=== PATIENT | male | born 2000 | race Caucasian/White ===

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

== ENCOUNTER 2018-08-04 21:29 | Emergency (ER) | payer BC ==
[2018-08-04 21:36] VITALS: BP 165/86
--- NOTE | 2018-08-04 22:07 | EDM.PDOC ---
ED HPI GENERAL MEDICAL PROBLEM - General Chief Complaint: General Stated Complaint: COLD Time Seen by Provider: 08/04/18 21:56 Source of Information: Reports: Patient History Limitations: Reports: No Limitations - History of Present Illness INITIAL COMMENTS - FREE TEXT/NARRATIVE: 18 YO WM presents to ER complaining of cough/congestion and mild shortness of breath which began 8 days ago. Pt came to ER tonight due to length of illness which was concerning him. 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 Pt denies chest pain, fever/chills, nausea/vomiting. Pt reports nasal congestion with some mild epistaxis. Onset Date: 07/27/18 Duration: Day(s): (8) Location: Reports: Generalized Severity: Mild Improves with: Reports: Cold Therapy Worsens with: Reports: None Associated Symptoms: Reports: Cough, cough w sputum, Shortness of Breath. Denies: Chest Pain, Fever/Chills, Nausea/Vomiting Treatments POOL CLEANER: Reports: Cold Therapy - Related Data Allergies Allergy/AdvReac Type Severity Reaction Status Date / Time Penicillins Allergy Hives Verified 08/04/18 21:40 Home Meds: Home Meds Albuterol [Ventolin HFA] 2 puff INH Q4H PRN #1 puff 08/04/18 [Rx] Azithromycin [Zithromax] 250 mg PO DAILY #6 tab 08/04/18 [Rx] Cetirizine [ZyrTEC] 10 mg PO DAILY #30 tab 08/04/18 [Rx] Past Medical History HEENT History: Reports: Impaired Vision, Other (See Below) Other HEENT History: glasses Respiratory History: Reports: Asthma Other Respiratory History: smoker. asthma as child Neurological History: Reports: Concussion - Infectious Disease History Infectious Disease History: Reports: Chicken Pox - Past Surgical History HEENT Surgical History: Reports: Tonsillectomy Social & Family History - Tobacco Use Smoking Status *Q: Current Every Day Smoker Years of Tobacco use: 2 Packs/Tins Daily: 1 - Caffeine Use Caffeine Use: Reports: Soda Other Caffeine Use: kristen yellow -3 per day - Recreational Drug Use Recreational Drug Use: No ED ROS GENERAL - Review of Systems Review Of Systems: See Below Constitutional: Reports: No Symptoms HEENT: Reports: Rhinitis, Throat Pain Respiratory: Reports: Wheezing Cardiovascular: Reports: No Symptoms Endocrine: Reports: No Symptoms GI/Abdominal: Reports: No Symptoms : Reports: No Symptoms Musculoskeletal: Reports: No Symptoms Skin: Reports: No Symptoms Neurological: Reports: No Symptoms Psychiatric: Reports: No Symptoms Hematologic/Lymphatic: Reports: No Symptoms Immunologic: Reports: No Symptoms ED EXAM, GENERAL - Physical Exam Exam: See Below Exam Limited By: No Limitations General Appearance: Alert, WD/WN, No Apparent Distress Ears: Normal External Exam, Normal Canal, Hearing Grossly Normal, Normal TMs Ear Exam: Bilateral Ear: Auricle Normal, Canal Normal, TM normal Nose: Nasal Drainage Throat/Mouth: Normal Inspection, Normal Lips, Normal Teeth, Normal Gums, Normal Oropharynx, Normal Voice, No Airway Compromise Head: Atraumatic, Normocephalic Neck: Normal Inspection, Supple, Non-Tender, Full Range of Motion Respiratory/Chest: No Respiratory Distress, No Accessory Muscle Use, Chest Non- Tender, Wheezing (scattered wheezes in upper lobes) Cardiovascular: Normal Peripheral Pulses, Regular Rate, Rhythm, No Edema, No Gallop, No JVD, No Murmur, No Rub GI/Abdominal: Normal Bowel Sounds, Soft, Non-Tender, No Organomegaly, No Distention, No Abnormal Bruit, No Mass Back Exam: Normal Inspection, Full Range of Motion, NT Extremities: Normal Inspection, Normal Range of Motion, Non-Tender, Normal Capillary Refill, No Pedal Edema Neurological: Alert, Oriented, CN II-XII Intact, Normal Cognition, Normal Gait, Normal Reflexes, No Motor/Sensory Deficits Psychiatric: Normal Affect, Normal Mood Skin Exam: Warm, Dry, Intact, Normal Color, No Rash Lymphatic: No Adenopathy Course - Vital Signs Last Recorded V/S: Last Vital Signs Temp 37.7 C 08/04/18 21:32 Pulse 86 08/04/18 21:32 Resp 22 H 08/04/18 21:32 BP 165/86 H 08/04/18 21:32 Pulse Ox 95 08/04/18 21:32 Departure - Departure Time of Disposition: 22:23 Disposition: Home, Self-Care 01 Condition: Good Clinical Impression: Acute bronchitis Qualifiers: Bronchitis organism: unspecified organism Qualified Code(s): J20.9 - Acute bronchitis, unspecified - Discharge Information Prescriptions: Albuterol [Ventolin HFA] 2 puff INH Q4H PRN #1 puff PRN Reason: Shortness Of Breath Azithromycin [Zithromax] 250 mg PO DAILY #6 tab Cetirizine [ZyrTEC] 10 mg PO DAILY #30 tab Instructions: Acute Bronchitis, Adult, [id number] Referrals: Lupe Mckeon MD [Primary Care Provider] - Additional Instructions: 1. discharge home 2. z-king 3. zyrtec 10mg PO Qam/Benadryl 50mg PO QHS PRN 4. albuterol HFA 2 puffs Q4 and PRN 5. return to ER for worsening symptoms 6. follow up with PCP in 48 hours for recheck - Assessment/Plan Assessment:: 1. acute bronchitis Plan: 1. discharge home 2. z-king 3. zyrtec 10mg PO Qam/Benadryl 50mg PO QHS PRN 4. albuterol HFA 2 puffs Q4 and PRN 5. return to ER for worsening symptoms 6. follow up with PCP in 48 hours for recheck
== END 2018-08-04 22:32 | disposition home or self-care (01) ==
LOC: KA.ED 21:29
DX: J20.9 Acute bronchitis, unspecified (principal); F17.210 Nicotine dependence, cigarettes, uncomplicated; J45.909 Unspecified asthma, uncomplicated; Z88.0 Allergy status to penicillin; Z79.899 Other long term (current) drug therapy
CPT/HCPCS: 99282

== ENCOUNTER 2018-12-20 21:04 | Emergency (ER) | payer BC ==
[2018-12-20 21:17] VITALS: BP 142/59; PULSE 86
[2018-12-20] MEDS ORDERED: Clindamycin HCl 150 MG Cap PO ONE (21:56)
[2018-12-20 21:59] LABS: ANION GAP 13.5 mmol/L (5-15); CHLORIDE,CL 105 mmol/L (98-115); SODIUM,NA 144 mmol/L (136-145)
--- NOTE | 2018-12-20 21:59 | EDM.PDOC ---
ED HPI GENERAL MEDICAL PROBLEM - General Chief Complaint: General Stated Complaint: lump in Right arm pit Time Seen by Provider: 12/20/18 21:19 Source of Information: Reports: Patient History Limitations: Reports: No Limitations - History of Present Illness INITIAL COMMENTS - FREE TEXT/NARRATIVE: Patient presents with a red, tender lump in right axilla. He says the lump has been present for a week or more and he sometimes messes with it out of boredom. Last night he attempted to open it with a finger nail clipper. Now today it is red and more tender. Right Axillary Pain Score (Numeric/FACES): 1 - Related Data Allergies Allergy/AdvReac Type Severity Reaction Status Date / Time Penicillins Allergy Hives Verified 08/04/18 21:40 Home Meds: Home Meds Albuterol [Ventolin HFA] 2 puff INH Q4H PRN #1 puff 08/04/18 [Rx] Azithromycin [Zithromax] 250 mg PO DAILY #6 tab 08/04/18 [Rx] Cetirizine [ZyrTEC] 10 mg PO DAILY #30 tab 08/04/18 [Rx] Past Medical History HEENT History: Reports: Impaired Vision, Other (See Below) Other HEENT History: glasses Respiratory History: Reports: Asthma Other Respiratory History: smoker. asthma as child Neurological History: Reports: Concussion - Infectious Disease History Infectious Disease History: Reports: Chicken Pox - Past Surgical History HEENT Surgical History: Reports: Tonsillectomy Social & Family History - Caffeine Use Caffeine Use: Reports: Soda Other Caffeine Use: kristen yellow -3 per day ED ROS GENERAL - Review of Systems Review Of Systems: See Below Constitutional: Denies: Fever, Chills, Malaise, Weakness HEENT: Denies: Ear Pain, Throat Pain, Vision Change Respiratory: Denies: Shortness of Breath (not normally but he says he sometimes has brief episodes once or twice at night. He doesn't know if he snores heavily or if he gasps at all during sleep. We discussed the possibility of sleep apnea and he will as his roommate if he has noticed any of these signs at all. He will follow up with PCP if any problems.), Cough Cardiovascular: Denies: Chest Pain, Lightheadedness, Syncope Endocrine: Reports: No Symptoms GI/Abdominal: Denies: Abdominal Pain, Diarrhea, Vomiting : Denies: Dysuria, Flank Pain Musculoskeletal: Denies: Neck Pain, Shoulder Pain, Arm Pain, Back Pain, Hand Pain Skin: Reports: Erythema, Lumps. Denies: Cyanosis, Jaundice, Mottled, Pallor, Diaphoresis Neurological: Denies: Confusion, Dizziness, Seizure, Syncope, Trouble Speaking, Difficulty Walking Psychiatric: Denies: Agitation, Anxiety ED EXAM, GENERAL - Physical Exam Exam: See Below Exam Limited By: No Limitations General Appearance: Alert, WD/WN, No Apparent Distress Eye Exam: Bilateral Eye: EOMI, Normal Inspection, PERRL Ears: Normal External Exam, Hearing Grossly Normal Nose: Normal Inspection, No Blood Throat/Mouth: Normal Inspection, Normal Lips, Normal Voice, No Airway Compromise Head: Atraumatic, Normocephalic Neck: Normal Inspection, Full Range of Motion, Other (He has a fairly short, thick neck which would support the possibility of JAJA) Respiratory/Chest: No Respiratory Distress, Lungs Clear, Normal Breath Sounds, No Accessory Muscle Use Cardiovascular: Regular Rate, Rhythm, No Murmur GI/Abdominal: Normal Bowel Sounds, Soft, Non-Tender, No Organomegaly, No Distention Back Exam: Normal Inspection, Full Range of Motion Extremities: Normal Inspection, Normal Range of Motion Neurological: Alert, Oriented, Normal Cognition, No Motor/Sensory Deficits Psychiatric: Normal Affect, Normal Mood Skin Exam: Warm, Dry, Intact, Normal Color, No Rash, Other (In the right anterior axilla there is a palpable lump approx. 2 cm in size with superficial erythema and minimal induration and mildly tender.) Course - Vital Signs Last Recorded V/S: Last Vital Signs Temp 98.8 F 12/20/18 21:07 Pulse 86 12/20/18 21:07 Resp 16 12/20/18 21:07 BP 142/59 H 12/20/18 21:07 Pulse Ox 96 12/20/18 21:07 - Orders/Labs/Meds Labs: Laboratory Tests 12/20/18 12/20/18 Range/Units 21:33 21:33 WBC 10.57 H (5.00-10.00) 10^3/uL RBC 5.61 (4.50-6.00) 10^6/uL Hgb 16.3 (13.0-17.0) g/dL Hct 46.1 (40.0-52.0) % MCV 82.2 (82.0-92.0) fL MCH 29.1 (27.0-31.0) pg MCHC 35.4 (32.0-36.0) g/dL RDW 12.5 (11.5-14.5) % Plt Count 198 (150-400) 10^3/uL MPV 10.2 (7.4-10.4) fL Immature Gran % (Auto) 0.2 (0.0-5.0) % Neut % (Auto) 59.9 (50.0-70.0) % Lymph % (Auto) 27.4 (20.0-40.0) % [place]atte % (Auto) 9.2 H (2.0-8.0) % Eos % (Auto) 3.0 (1.0-3.0) % Baso % (Auto) 0.3 (0.0-1.0) % Immature Gran # (Auto) 0.02 (0.00-0.50) 10^3/uL Neut # (Auto) 6.33 (2.50-7.00) 10^3/uL Lymph # (Auto) 2.90 (1.00-4.00) 10^3/uL [place] # (Auto) 0.97 H (0.10-0.80) 10^3/uL Eos # (Auto) 0.32 H (0.10-0.30) 10^3/uL Baso # (Auto) 0.03 (0.00-0.10) 10^3/uL Sodium 144 (136-145) mmol/L Potassium 4.1 (3.3-5.3) mmol/L Chloride 105 (98-115) mmol/L Carbon Dioxide 29.6 (21.0-32.0) mmol/L Anion Gap 13.5 (5-15) mmol/L BUN 14 (6-25) mg/dL Creatinine 0.89 (0.51-1.17) mg/dL Est Cr Clr Drug Dosing 149.63 mL/min Estimated GFR (MDRD) > 60 mL/min Glucose 124 H (75 - 99) mg/dL Calcium 9.2 (8.7-10.3) mg/dL Total Bilirubin 0.3 (0.2-1.0) mg/dL AST 26 (15-37) U/L ALT 64 (12-78) U/L Alkaline Phosphatase 65 (46-116) IU/L Total Protein 7.2 (6.4-8.2) g/dL Albumin 3.84 (3.00-4.80) g/dL Meds: Medications Discontinued Medications Generic Name Dose Route Start Last Admin Trade Name Orlin PRN Reason Stop Dose Admin Clindamycin HCl 1,200 mg 12/20/18 21:56 Cleocin PO 12/20/18 21:57 ONETIME ONE - Re-Assessments/Exams Free Text/Narrative Re-Assessment/Exam: 12/20/18 22:06 WBC is 10.5; discussed findings and treatment plan with patient. Since he had swelling in the face and throat from penicillin I will avoid Keflex at this time , so he will take Clindamycin and follow up with his PCP in a week for recheck. I would expect either the redness and swelling to be gone or ripened to a drainable abscess by that time. Patient discharged to home in stable condition. Departure - Departure Time of Disposition: 21:59 Disposition: Home, Self-Care 01 Condition: Good Clinical Impression: Sebaceous cyst of right axilla, Cellulitis of axilla, right - Discharge Information Instructions: Cellulitis, Adult, [place] Forms: ED Department Discharge Additional Instructions: 1. Drink 8 cups of water daily. 2. Take the antibiotic as directed. 3. Follow up with your PCP in about a week for recheck. 4. Recheck sooner if worsening.
== END 2018-12-20 22:10 | disposition home or self-care (01) ==
LOC: KA.ED 21:04
DX: L72.3 Sebaceous cyst (principal); L03.111 Cellulitis of right axilla; Z88.1 Allergy status to other antibiotic agents; J45.909 Unspecified asthma, uncomplicated
CPT/HCPCS: 36415; 80053; 85025; 99283; A9270-GY

== ENCOUNTER 2018-12-22 13:25 | Emergency (ER) | payer BC ==
[2018-12-22 13:37] VITALS: BP 145/79; PULSE 90
[2018-12-22] MEDS ORDERED: Lidocaine 1% 20 ML MDV ONE (14:09)
[2018-12-22] MEDS ORDERED: Lidocaine 1% 20 ML MDV INJECT ONE (14:17)
--- NOTE | 2018-12-22 14:41 | EDM.PDOC ---
ED HPI GENERAL MEDICAL PROBLEM - General Chief Complaint: Upper Extremity Injury/Pain Time Seen by Provider: 12/22/18 14:05 Source of Information: Reports: Patient History Limitations: Reports: No Limitations - History of Present Illness INITIAL COMMENTS - FREE TEXT/NARRATIVE: Patient presents with draining abscess at his right axilla. He was here two days ago and started on Clindamycin for this which hadn't drained at all yet at that time. He says he called the clinic but couldn't get in for two hours so came back to ER. He has been taking the Clindamycin bid as directed and has 4 doses in now. No fever or other changes in last two days. Right Axillary Pain Score (Numeric/FACES): 5 - Related Data Allergies Allergy/AdvReac Type Severity Reaction Status Date / Time Penicillins Allergy Hives Verified 12/22/18 13:36 Home Meds: Home Meds Albuterol [Ventolin HFA] 2 puff INH Q4H PRN #1 puff 08/04/18 [Rx] Azithromycin [Zithromax] 250 mg PO DAILY #6 tab 08/04/18 [Rx] Past Medical History HEENT History: Reports: Impaired Vision, Other (See Below) Other HEENT History: glasses Respiratory History: Reports: Asthma Other Respiratory History: smoker. asthma as child Neurological History: Reports: Concussion - Infectious Disease History Infectious Disease History: Reports: Chicken Pox - Past Surgical History Head Surgeries/Procedures: Reports: None HEENT Surgical History: Reports: Tonsillectomy Respiratory Surgical History: Reports: None Neurological Surgical History: Reports: None Social & Family History - Family History Family Medical History: Noncontributory - Tobacco Use Smoking Status *Q: Current Every Day Smoker Years of Tobacco use: 2 Packs/Tins Daily: 0.5 - Caffeine Use Caffeine Use: Reports: Soda Other Caffeine Use: kristen yellow -3 per day - Recreational Drug Use Recreational Drug Use: No Review of Systems - Review of Systems Review Of Systems: ROS reveals no pertinent complaints other than HPI. ED EXAM, GENERAL - Physical Exam Exam: See Below Exam Limited By: No Limitations General Appearance: Alert, WD/WN, No Apparent Distress Eye Exam: Bilateral Eye: EOMI, Normal Inspection, PERRL Ears: Normal External Exam, Hearing Grossly Normal Nose: Normal Inspection, No Blood Throat/Mouth: Normal Inspection, Normal Lips, Normal Voice, No Airway Compromise Head: Atraumatic, Normocephalic Neck: Normal Inspection, Full Range of Motion Respiratory/Chest: No Respiratory Distress, Lungs Clear, Normal Breath Sounds Cardiovascular: Regular Rate, Rhythm, No Murmur Extremities: Normal Range of Motion, Other (At anterior right axilla there is moderate bloody/serous drainage from a moderately swollen and erythematous lesion. No surrounding erythema but there is palpable induration about 1.5 x 2 inches in size. ) Neurological: Alert, Oriented, Normal Cognition, No Motor/Sensory Deficits Psychiatric: Normal Affect, Normal Mood Skin Exam: Warm, Dry, Intact, Normal Color, No Rash ED TRAUMA EXTREMITY PROCEDURES - I&D Site: right axilla Skin Prep: Providone-Iodine (Betadine) Local Anesthesia: Lidocaine: 1% Plain Local Anesthetic Volume: 2cc Area Incised With: 11 Blade Drainage: Bloody, Small Amount Probed to Break Up Loculations: Yes Sterile Dressinx4(s) Complications: No Course - Vital Signs Last Recorded V/S: Last Vital Signs Temp 98.9 F 12/22/18 13:32 Pulse 90 12/22/18 13:32 Resp 16 12/22/18 13:32 BP 145/79 H 12/22/18 13:32 Pulse Ox 95 12/22/18 13:32 - Orders/Labs/Meds Orders: Active Orders 24 hr Category Date Time Status CULTURE WOUND + SMEAR [RM] Stat Lab 12/22/18 14:21 Ordered Meds: Medications Discontinued Medications Generic Name Dose Route Start Last Admin Trade Name Orlin PRN Reason Stop Dose Admin Lidocaine HCl Confirm 12/22/18 14:09 Xylocaine 1% Administered 12/22/18 14:10 Dose 20 ml .ROUTE .STK-MED ONE Lidocaine HCl 3 ml 12/22/18 14:17 Xylocaine 1% INJECT 12/22/18 14:18 ONETIME ONE - Re-Assessments/Exams Free Text/Narrative Re-Assessment/Exam: 12/22/18 14:35 I discussed the procedure with patient prior to proceeding and he agreed. Sterile technique was used to anesthetize and open the site. Culture swabs were taken of what appeared to be mostly bloody discharge. No significant purulence was found. The wound was kept open by leaving a corner of the sterile 4x4 inside and 3-4 additional 4x4s were placed over the site to absorb future drainage. This was held in place on 3 sides by metapore tape; open to the axilla side. Patient tolerated the procedure well. The indurated area is slightly larger than it was two days ago. I feel it is too early to know if Clindamycin will be adequate for this but follow up with culture results in 2-3 days will be better indicator. Since patient had swelling of face and throat from penicillin, hopefully Clindamycin will be efficacious. Discussed findings and treatment plan with patient and he was discharged to home in stable condition. Departure - Departure Time of Disposition: 14:31 Disposition: Home, Self-Care 01 Condition: Good Clinical Impression: Infected cyst of right shoulder - Discharge Information Referrals: Lidia Luis PA-C [Primary Care Provider] - Additional Instructions: 1. Drink 8 cups of water daily. 2. Continue the antibiotics as directed. 3. Change the bandages as often as needed to control drainage, but at least daily. 4. Follow up in 2-3 days with your PCP for recheck and culture results. Call today to make that appointment. - My Orders Last 24 Hours: My Active Orders 12/22/18 14:21 CULTURE WOUND + SMEAR [RM] Stat - Assessment/Plan Last 24 Hours: My Active Orders 12/22/18 14:21 CULTURE WOUND + SMEAR [RM] Stat
== END 2018-12-22 14:40 | disposition home or self-care (01) ==
LOC: KA.ED 13:25
DX: L02.411 Cutaneous abscess of right axilla (principal); J45.909 Unspecified asthma, uncomplicated; F17.210 Nicotine dependence, cigarettes, uncomplicated; Z88.0 Allergy status to penicillin
CPT/HCPCS: 10060; 87070; 87205; 99283-25; J2001

== ENCOUNTER 2020-01-13 23:17 | Emergency (ER) | payer BC ==
[2020-01-13 23:28] VITALS: BP 166/94; PULSE 97
[2020-01-13] MEDS: Ketorolac 60 MG/2 ML SDV IM ONE (23:35)
[2020-01-13] MEDS: Ketorolac 60 MG/2 ML SDV ONE (23:41)
--- NOTE | 2020-01-13 23:43 | EDM.PDOC ---
ED HPI GENERAL MEDICAL PROBLEM - General Chief Complaint: ENT Problem Stated Complaint: headache, tooth ache Time Seen by Provider: 01/13/20 23:43 Source of Information: Reports: Patient History Limitations: Reports: No Limitations - History of Present Illness INITIAL COMMENTS - FREE TEXT/NARRATIVE: Horacio, 19-year-old male, dental pain #32 occurring last week. He had seen his dentist and was told to think about either extraction or crown with root canal. Stated he got tied up at work and busy and tonight is regretting that decision as pain has returned more significant causing ear pain as well as headache. Has established with dentist in [facility] and will be contacting them Saturday for the extraction appointment. Denies any other contributing factors. Onset Date: 01/11/20 Duration: Day(s):, Getting Worse Location: Reports: Face Quality: Reports: Ache, Pressure Severity: Moderate head/tooth Pain Score (Numeric/FACES): 7 - Related Data Allergies Allergy/AdvReac Type Severity Reaction Status Date / Time Penicillins Allergy Hives Verified 01/13/20 23:18 Home Meds: Home Meds clindamycin HCL [Cleocin] 450 mg PO Q6H #18 cap 01/13/20 [Rx] Past Medical History HEENT History: Reports: Impaired Vision, Other (See Below) Other HEENT History: glasses, dental caries Cardiovascular History: Reports: None Respiratory History: Reports: Asthma Other Respiratory History: smoker. asthma as child Neurological History: Reports: Concussion - Infectious Disease History Infectious Disease History: Reports: Chicken Pox - Past Surgical History Head Surgeries/Procedures: Reports: None HEENT Surgical History: Reports: Tonsillectomy Respiratory Surgical History: Reports: None Neurological Surgical History: Reports: None Social & Family History - Family History Family Medical History: No Pertinent Family History - Tobacco Use Tobacco Use Status *Q: Current Every Day Tobacco User Tobacco Use Within Last Twelve Months: Cigarettes Years of Tobacco use: 6 Packs/Tins Daily: 0.5 Used Tobacco, but Quit: No - Caffeine Use Caffeine Use: Reports: Soda Other Caffeine Use: kristen yellow -3 per day - Recreational Drug Use Recreational Drug Use: No ED ROS GENERAL - Review of Systems Review Of Systems: Comprehensive ROS is negative, except as noted in HPI. ED EXAM, GENERAL - Physical Exam Exam: See Below Free Text/Narrative:: Alert, oriented, in mild painful distress. HEENT shows inflamed bulging right tympanic membrane with faint flushing of the left membrane. Nasal passages are clear. Oral pharynx is free of erythema or discharge. #32 shows significant caries with erythema and redness surrounding the tooth. There is no involvement of the cheek or buccal area. No inflammation of the tongue. He is able to swallow his secretions with no problem. Neck is soft supple with no lymphadenopathy. States the right side of his face aches but there is no notable swelling/inflammation to the tissue. Thorax is clear with no wheezes nor crackles. Cardiac regular S1-S2 no murmur. Denies any nausea no abdominal pain. Course - Vital Signs Last Recorded V/S: Last Vital Signs Temp 36.7 C 01/13/20 23:21 Pulse 97 01/13/20 23:21 Resp 16 01/13/20 23:21 BP 166/94 H 01/13/20 23:21 Pulse Ox 96 01/13/20 23:21 - Orders/Labs/Meds Orders: Active Orders 24 hr Category Date Time Status clindamycin HCL [Cleocin] Med 01/13/20 23:45 Ordered 2,250 mg PO Q8H Medication Orders Clindamycin HCl (Cleocin) 2,250 mg PO Q8H ELENA Meds: Medications Generic Name Dose Route Start Last Admin Trade Name Freq PRN Reason Stop Dose Admin Clindamycin HCl 2,250 mg 01/13/20 23:45 Cleocin PO Q8H ELENA Discontinued Medications Generic Name Dose Route Start Last Admin Trade Name Freq PRN Reason Stop Dose Admin Ketorolac Tromethamine Confirm 01/13/20 23:32 01/13/20 23:41 Toradol Administered 01/13/20 23:33 Not Given Dose 60 mg .ROUTE .STK-MED ONE Ketorolac Tromethamine 60 mg 01/13/20 23:38 01/13/20 23:35 Toradol IM 01/13/20 23:39 60 mg ONETIME ONE Administration - Re-Assessments/Exams Free Text/Narrative Re-Assessment/Exam: 01/14/20 00:11 Headache significantly improved as well as some improvement of the dental pain with the injection of ketorolac. Departure - Departure Time of Disposition: 00:11 Disposition: Home, Self-Care 01 Condition: Good Clinical Impression: Pain, dental, Ear pain, right, Dental caries extending into dentin - Discharge Information *PRESCRIPTION DRUG MONITORING PROGRAM REVIEWED*: Not Applicable *COPY OF PRESCRIPTION DRUG MONITORING REPORT IN PATIENT DAVID: Not Applicable Prescriptions: clindamycin HCL [Cleocin] 450 mg PO Q6H #18 cap Forms: ED Department Discharge Additional Instructions: You may take ibuprofen, 800 mg every 8 hours with food to help with discomfort. Tylenol 1000 mg every 8 hours to assist with pain Clindamycin 450 mg every 8 hours with enough issued here in the emergency department to last you until the pharmacy opens on Saturday. You will then sweet pickle maker prescription Saturday to continue for the remainder of the weeks treatment. Make sure you drink as much fluid as possible, preferably water. Contact your dentist Saturday morning to make arrangements for the extraction or treatment to which ever you have decided. Call or return if worsening over the weekend. Sepsis Event Note (ED) - Evaluation Sepsis Screening Result: No Definite Risk - Focused Exam Vital Signs: Vital Signs Temp Pulse Resp BP Pulse Ox 01/13/20 23:21 36.7 C 97 16 166/94 H 96 - Problem List & Annotations (1) Pain, dental SNOMED Code(s): 96586185 Code(s): K08.89 - OTHER SPECIFIED DISORDERS OF TEETH AND SUPPORTING STRUCTURES Status: Acute Priority: High (2) Headache SNOMED Code(s): 33524767 Code(s): R51.9 - HEADACHE, UNSPECIFIED Status: Acute Priority: High Qualifiers: Headache type: unspecified Headache chronicity pattern: acute headache Intractability: not intractable Qualified Code(s): R51.9 - Headache, unspecified (3) Ear pain, right SNOMED Code(s): 03578075, 117984490 Code(s): H92.01 - OTALGIA, RIGHT EAR Status: Acute Priority: High - Problem List Review Problem List Initiated/Reviewed/Updated: Yes - My Orders Last 24 Hours: My Active Orders 01/13/20 23:45 clindamycin HCL [Cleocin] 2,250 mg PO Q8H - Assessment/Plan Last 24 Hours: My Active Orders 01/13/20 23:45 clindamycin HCL [Cleocin] 2,250 mg PO Q8H Plan: You may take ibuprofen, 800 mg every 8 hours with food to help with discomfort. Tylenol 1000 mg every 8 hours to assist with pain Clindamycin 450 mg every 8 hours with enough issued here in the emergency department to last you until the pharmacy opens on Saturday. You will then sweet pickle maker prescription Saturday to continue for the remainder of the weeks treatment. Make sure you drink as much fluid as possible, preferably water. Contact your dentist Saturday morning to make arrangements for the extraction or treatment to which ever you have decided. Call or return if worsening over the weekend.
[2020-01-13] MEDS ORDERED: Clindamycin HCl 150 MG Cap PO SCH (23:45)
[2020-01-14] MEDS: Clindamycin HCl 150 MG Cap PO ONE (00:10)
== END 2020-01-14 00:10 | disposition home or self-care (01) ==
LOC: KA.ED 23:17
DX: K02.9 Dental caries, unspecified (principal); J45.909 Unspecified asthma, uncomplicated; H92.01 Otalgia, right ear; F17.210 Nicotine dependence, cigarettes, uncomplicated; Z88.0 Allergy status to penicillin
CPT/HCPCS: 96372; 99282; 99283; A9270-GY; J1885

== ENCOUNTER 2021-04-19 20:38 | Emergency (ER) | payer BC ==
[2021-04-19] MEDS ORDERED: Sodium Chloride 0.9% 10 ML Syringe FLUSH PRN (20:58)
[2021-04-19] MEDS ORDERED: Pantoprazole 80 MG in Sodium Chloride 0.9% 100 ML IV ONE (20:59)
[2021-04-19 21:33] LABS: ANION GAP 15.8 mmol/L (5-15); CHLORIDE,CL 102 mmol/L (98-107); SODIUM,NA 141 mmol/L (136-145)
[2021-04-19] MEDS ORDERED: Sodium Chloride 0.9% 100 ML IV SCH (21:45)
[2021-04-19 22:26] VITALS: BP 147/70; PULSE 87
== END 2021-04-19 22:48 | disposition home or self-care (01) ==
LOC: KA.ED 20:38
DX: F10.129 Alcohol abuse with intoxication, unspecified (principal); J45.909 Unspecified asthma, uncomplicated; E66.9 Obesity, unspecified; Z68.39 Body mass index [BMI] 39.0-39.9, adult; Z88.0 Allergy status to penicillin; Y90.6 Blood alcohol level of 120-199 mg/100 ml
CPT/HCPCS: 36415; 71045; 80053; 80307; 85025; 96365; 99284; 99284-25; C9113

== ENCOUNTER 2021-06-22 21:08 | Emergency (ER) | payer BC ==
[2021-06-22] MEDS: Sodium Chloride 0.9% 1,000 ML IV ONE (21:40)
[2021-06-22] MEDS: Ondansetron 4 MG/2 ML SDV IVPUSH ONE (21:40)
[2021-06-22 22:54] VITALS: BP 137/78; PULSE 122
[2021-06-22 23:36] LABS: CORONAVIRUS COVID-19 NAA NEGATIVE (NEGATIVE)
== END 2021-06-22 23:54 | disposition home or self-care (01) ==
LOC: KA.ED 21:08
DX: R11.10 Vomiting, unspecified (principal); R19.7 Diarrhea, unspecified; E66.9 Obesity, unspecified; Z68.41 Body mass index [BMI] 40.0-44.9, adult; Z88.0 Allergy status to penicillin; Z20.822 Contact with and (suspected) exposure to COVID-19
CPT/HCPCS: 0240U; 96374; 99284; 99284-25; J2405; J7030

== ENCOUNTER 2021-06-30 20:46 | Emergency (ER) | payer BC ==
[2021-06-30 21:24] VITALS: BP 139/86; PULSE 89
== END 2021-06-30 21:50 | disposition home or self-care (01) ==
LOC: KA.ED 20:46
DX: N50.812 Left testicular pain (principal); F17.210 Nicotine dependence, cigarettes, uncomplicated; E66.9 Obesity, unspecified; Z68.37 Body mass index [BMI] 37.0-37.9, adult; Z86.16 Personal history of COVID-19; Z88.0 Allergy status to penicillin
CPT/HCPCS: 99283

== ENCOUNTER 2023-02-18 18:03 | Emergency (ER) | payer BC, OTHER ==
[2023-02-18] MEDS ORDERED: Ibuprofen 600 MG Tab PO ONE (18:23)
[2023-02-18 18:24] VITALS: BP 154/96; PULSE 112
== END 2023-02-18 19:18 | disposition home or self-care (01) ==
LOC: KA.ED 18:03
DX: S93.402A Sprain of unspecified ligament of left ankle, initial encounter (principal); M53.3 Sacrococcygeal disorders, not elsewhere classified; E66.9 Obesity, unspecified; Z88.0 Allergy status to penicillin; Z68.39 Body mass index [BMI] 39.0-39.9, adult; V49.49XA Driver injured in collision with other motor vehicles in traffic accident, initial encounter; Y92.410 Unspecified street and highway as the place of occurrence of the external cause
CPT/HCPCS: 72220; 73610-LT; 99284; A9270-GY

== ENCOUNTER 2023-09-15 22:40 | Emergency (ER) | payer BC, OTHER ==
[2023-09-15 23:43] LABS: BASOPHILS ABSOLUTE AUTO 0.04 10^3/uL (0.00-0.10); BASOPHILS PERCENT AUTO 0.6 % (0.0-1.0); EOSINOPHILS ABSOLUTE AUTO 0.05 10^3/uL (0.10-0.30); EOSINOPHILS PERCENT AUTO 0.8 % (1.0-3.0); HEMATOCRIT 46.2 % (40.0-52.0); HEMOGLOBIN 15.5 g/dL (13.0-17.0); IMMATURE GRAN ABSOLUTE AUTO 0.03 10^3/uL (0.00-0.50); IMMATURE GRAN PERCENT AUTO 0.5 % (0.0-5.0); LYMPHOCYTES ABSOLUTE AUTO 1.55 10^3/uL (1.00-4.00); LYMPHOCYTES PERCENT AUTO 23.6 % (20.0-40.0); MEAN CORPUSCULAR HEMOGLOBIN 28.1 pg (27.0-31.0); MEAN CORPUSCULAR HGB CONC 33.5 g/dL (32.0-36.0); MEAN CORPUSCULAR VOLUME 83.7 fL (82.0-92.0); MEAN PLATELET VOLUME 10.2 fL (7.4-10.4); MONOCYTES ABSOLUTE AUTO 0.79 10^3/uL (0.10-0.80); NEUTROPHILS ABSOLUTE AUTO 4.12 10^3/uL (2.50-7.00); NEUTROPHILS PERCENT AUTO 62.5 % (50.0-70.0); PLATELET COUNT,PLT 163 10^3/uL (150-400); RED BLOOD CELL COUNT 5.52 10^6/uL (4.50-6.00); RED CELL DISTRIBUTION WIDTH 12.6 % (11.5-14.5); WHITE BLOOD CELL COUNT,WBC 6.58 10^3/uL (5.00-10.00)
[2023-09-15] MEDS ORDERED: methylPREDNISolone Sodium Succinate 125 MG/2 ML SDV IM ONE (23:43)
[2023-09-16 00:01] LABS: ALANINE AMINOTRANSFERASE,ALT 83 U/L (14-63); ALBUMIN 3.66 g/dL (3.40-5.00); ALKALINE PHOSPHATASE 60 U/L (46-116); ANION GAP 13.5 mmol/L (5-15); ASPARTATE AMNIOTRANSFERASE,AST 44 U/L (15-37); BILIRUBIN TOTAL 0.5 mg/dL (0.2-1.0); BLOOD UREA NITROGEN,BUN 11 mg/dL (7-18); C-REACTIVE PROTEIN 3.27 mg/dL (0.00-0.50); CALCIUM 8.7 mg/dL (8.7-10.3); CARBON DIOXIDE,CO2 28.7 mmol/L (21.0-32.0); CHLORIDE,CL 101 mmol/L (98-107); CREATININE 0.83 mg/dL (0.51-1.17); GLUCOSE RANDOM 136 mg/dL (70-140); POTASSIUM,K 3.2 mmol/L (3.5-5.1); PROTEIN TOTAL,TP 7.4 g/dL (6.4-8.2); SODIUM,NA 140 mmol/L (136-145)
[2023-09-16] MEDS: Sodium Chloride 0.9% 10 ML Syringe FLUSH PRN (00:12)
[2023-09-16] MEDS: methylPREDNISolone Sodium Succinate 125 MG/2 ML SDV IVPUSH ONE (00:13)
[2023-09-16 00:14] LABS: ESTIMATED GFR 125 mL/min (>=60)
[2023-09-16 00:21] LABS: CORONAVIRUS COVID-19 NAA NEGATIVE (NEGATIVE); INFLUENZA A NAA NEGATIVE (NEGATIVE); INFLUENZA B NAA NEGATIVE (NEGATIVE); RESPIRATORY SYNCYTIAL VIR NAA NEGATIVE (NEGATIVE)
[2023-09-16 02:27] VITALS: BP 140/79; PULSE 101
== END 2023-09-16 00:58 | disposition home or self-care (01) ==
LOC: KA.ED 22:40
DX: J45.991 Cough variant asthma (principal); K21.9 Gastro-esophageal reflux disease without esophagitis; E66.9 Obesity, unspecified; Z86.16 Personal history of COVID-19; Z88.0 Allergy status to penicillin; Z68.41 Body mass index [BMI] 40.0-44.9, adult
CPT/HCPCS: 0241U; 36415; 71046; 80053; 85025; 86140; 96374; 99285; J2919; J3490